=== PATIENT | male | born 1995 | race American Indian/Alaskan Native ===

== ENCOUNTER 2020-10-23 05:53 | Emergency (ER) | payer SELFPAY ==
[2020-10-23 06:03] VITALS: BP 122/74
--- NOTE | 2020-10-23 06:51 | XRay Report ---
CHEST 2 VIEWS INDICATION: right chest pain for the past 6 hours. COMPARISON: None FINDINGS: SUPPORT DEVICES: None. HEART: Within normal limits. LUNGS/PLEURA: Mild subtle patchy bibasilar airspace disease. No pneumothorax. ADDITIONAL FINDINGS: None. IMPRESSION: 1. Pulmonary findings as above. Signer Name: Janes Adams MD Signed: 10/23/2020 6:46 AM Workstation Name: [id number]
[2020-10-23 09:31] LABS: Basophils # (Auto) 0.1 K/mm3 (0.0-0.1); Basophils % (Auto) 1.3 % (0.0-1.8); Eosinophils # (Auto) 0.3 K/mm3 (0.0-0.4); Eosinophils % (Auto) 5.1 % (0.0-4.3); Hematocrit 39.4 % (35.5-45.6); Hemoglobin 13.9 gm/dl (11.8-15.2); Lymphocytes # (Auto) 2.8 K/mm3 (1.2-5.4); Lymphocytes % (Auto) 44.6 % (13.4-35.0); Mean Corpuscular HGB Conc 35 % (32-34); Mean Corpuscular Volume 86 fl (84-94); Monocytes # (Auto) 0.5 K/mm3 (0.0-0.8); Monocytes % (Auto) 8.1 % (0.0-7.3); Platelet Count 288 K/mm3 (140-440); Red Blood Count 4.57 M/mm3 (3.65-5.03)
[2020-10-23 09:50] LABS: Alanine Aminotransferase 23 units/L (7-56); Albumin 4.4 g/dL (3.9-5); BUN/Creatinine Ratio 12; Blood Urea Nitrogen 11 mg/dL (9-20); Calcium 9.5 mg/dL (8.4-10.2); Hemolysis Index 2
[2020-10-23 09:56] LABS: INR 0.92 (0.87-1.13)
[2020-10-23 09:57] LABS: Partial Thromboplastin Time 25.8 Sec. (24.2-36.6)
--- NOTE | 2020-10-23 09:59 | Emergency Department Report ---
ED Chest Pain HPI - General Chief Complaint: Chest Pain Stated Complaint: CHEST PAIN Time Seen by Provider: 10/23/20 08:34 Source: patient Mode of arrival: Ambulatory Limitations: No Limitations - History of Present Illness Initial Comments: This is a 25-year-old male nontoxic, well nourished in appearance, no acute signs of distress presents to the ED with c/o of right sided chest pain and dry nonproductive cough times several days. Patient denies any radiation of pain. Patient describes pain as aching intermittently and worse with coughing and p alpation. Patient denies any other upper respiratory symptoms. Patient denies any shortness of breath, hemoptysis, fever, chills, nausea, vomiting, headache, stiff neck, numbness, tingling, abdominal pain. Patient denies pleuritic chest pain. Patient denies any recent travels or long car rides. Patient denies any recent surgeries or any sick contacts. Patient denies any drug allergies or sig nificant past medical history. MD Complaint: chest pain (right side) -: days(s) Pain Location: right chest Pain Radiation: none Severity: mild Severity scale (0 -10): 3 Quality: aching, sharp Consistency: intermittent Improves With: rest Worsens With: palpation, other (Cough) re: denies: nausea, vomting, diaphoresis, dyspnea, sense of impending doom Other Symptoms: denies: cough, fever, syncope, rash, acid taste in mouth, leg swelling, palpitations, burping Treatments Prior to Arrival: none Aspirin use within the Past 7 Days: (0) No - Related Data Previous Rx's Medication Instructions Recorded Last Taken Type Acetaminophen [Acetaminophen 8 650 mg PO Q8H PRN #12 tablet.er 10/23/20 Unknown Rx Hour] Azithromycin [Zithromax Z-KATHRYN] 250 mg PO DAILY #6 tablet 10/23/20 Unknown Rx Allergies Allergy/AdvReac Type Severity Reaction Status Date / Time No Known Allergies Allergy Unverified 10/23/20 06:08 Heart Score - HEART Score History: Slightly suspicious EKG: Normal Age: < 45 Risk factors: No known risk factors Troponin: < normal limit HEART Score: 0 - EKG Read Time Time EKG Completed: 06:01 EKG Read Time: 06:05 (Dr. Rader) ED Review of Systems ROS: Stated complaint: CHEST PAIN Other details as noted in HPI Comment: All other systems reviewed and negative Constitutional: denies: chills, fever Eyes: denies: eye pain, eye discharge, vision change ENT: denies: ear pain, throat pain Respiratory: cough. denies: shortness of breath, wheezing Cardiovascular: chest pain. denies: palpitations Endocrine: no symptoms reported Gastrointestinal: denies: abdominal pain, nausea, diarrhea Genitourinary: denies: urgency, dysuria Musculoskeletal: denies: back pain, joint swelling, arthralgia Skin: denies: rash, lesions Neurological: denies: headache, weakness, paresthesias Psychiatric: denies: anxiety, depression Hematological/Lymphatic: denies: easy bleeding, easy bruising ED Past Medical Hx - Past Medical History Previous Medical History?: No - Surgical History Past Surgical History?: No - Social History Smoking Status: Current Every Day Smoker Substance Use Type: None - Medications Home Medications: Home Medications Medication Instructions Recorded Confirmed Last Taken Type Acetaminophen [Acetaminophen 8 650 mg PO Q8H PRN #12 tablet.er 10/23/20 Unknown Rx Hour] Azithromycin [Zithromax Z-KATHRYN] 250 mg PO DAILY #6 tablet 10/23/20 Unknown Rx ED Physical Exam - General Limitations: No Limitations General appearance: alert, in no apparent distress - Head Head exam: Present: atraumatic, normocephalic - Eye Eye exam: Present: normal appearance - Neck Neck exam: Present: normal inspection, full ROM. Absent: lymphadenopathy - Respiratory Respiratory exam: Present: normal lung sounds bilaterally, chest wall tenderness (Right side). Absent: respiratory distress, wheezes, rales, rhonchi, accessory muscle use, decreased breath sounds, prolonged expiratory - Cardiovascular Cardiovascular Exam: Present: regular rate, normal rhythm, normal heart sounds. Absent: bradycardia, tachycardia, irregular rhythm, systolic murmur, diastolic murmur, rubs, gallop - GI/Abdominal GI/Abdominal exam: Present: soft, normal bowel sounds. Absent: distended, tenderness, guarding, rebound, rigid, diminished bowel sounds - Extremities Exam Extremities exam: Present: normal inspection, full ROM - Back Exam Back exam: Present: normal inspection, full ROM. Absent: tenderness, CVA tenderness (R), CVA tenderness (L), muscle spasm, paraspinal tenderness, vertebral tenderness, rash noted - Neurological Exam Neurological exam: Present: alert, oriented X3, normal gait - Psychiatric Psychiatric exam: Present: normal affect, normal mood - Skin Skin exam: Present: warm, dry, intact, normal color. Absent: rash ED Course Vital Signs 10/23/20 10/23/20 05:59 06:02 Temperature 98.6 F Pulse Rate 62 Respiratory 18 Rate Blood Pressure 122/74 O2 Sat by Pulse 100 Oximetry - Reevaluation(s) Reevaluation #1: 10/23/20 10:14 Patient is speaking in full sentences with no signs of distress noted. LEO score - Leo Score Age > 65: (0) No Aspirin use within the Past 7 Days: (0) No 3 or more CAD Risk Factors: (0) No 2 or more Angina events in past 24 hrs: (0) No Known CAD with more than 50% Stenosis: (0) No Elevated Cardiac Markers: (0) No ST Deviation Greater than 0.5mm: (0) No LEO Score: 0 ED Medical Decision Making - Lab Data Result diagrams: 10/23/20 08:49 10/23/20 08:49 Lab Results 10/23/20 10/23/20 10/23/20 Range/Units 08:49 08:49 08:49 WBC 6.3 (4.5-11.0) K/mm3 RBC 4.57 (3.65-5.03) M/mm3 Hgb 13.9 (11.8-15.2) gm/dl Hct 39.4 (35.5-45.6) % MCV 86 (84-94) fl MCH 31 (28-32) pg MCHC 35 H (32-34) % RDW 14.0 (13.2-15.2) % Plt Count 288 (140-440) K/mm3 Lymph % (Auto) 44.6 H (13.4-35.0) % Dare % (Auto) 8.1 H (0.0-7.3) % Eos % (Auto) 5.1 H (0.0-4.3) % Baso % (Auto) 1.3 (0.0-1.8) % Lymph # (Auto) 2.8 (1.2-5.4) K/mm3 Dare # (Auto) 0.5 (0.0-0.8) K/mm3 Eos # (Auto) 0.3 (0.0-0.4) K/mm3 Baso # (Auto) 0.1 (0.0-0.1) K/mm3 Seg Neutrophils % 40.9 (40.0-70.0) % Seg Neutrophils # 2.6 (1.8-7.7) K/mm3 PT 12.9 (12.2-14.9) Sec. INR 0.92 (0.87-1.13) APTT 25.8 (24.2-36.6) Sec. Sodium 143 (137-145) mmol/L Potassium 4.5 (3.6-5.0) mmol/L Chloride 104.9 (98-107) mmol/L Carbon Dioxide 30 (22-30) mmol/L Anion Gap 13 mmol/L BUN 11 (9-20) mg/dL Creatinine 0.9 (0.8-1.3) mg/dL Estimated GFR > 60 ml/min BUN/Creatinine Ratio 12 % Glucose 83 (75-100) mg/dL Calcium 9.5 (8.4-10.2) mg/dL Total Bilirubin 0.40 (0.1-1.2) mg/dL AST 47 H (5-40) units/L ALT 23 (7-56) units/L Alkaline Phosphatase 42 (35-129) units/L Troponin T < 0.010 (0.00-0.029) ng/mL Total Protein 6.3 (6.3-8.2) g/dL Albumin 4.4 (3.9-5) g/dL Albumin/Globulin Ratio 2.3 % // Range/Units 10:54 WBC (4.5-11.0) K/mm3 RBC (3.65-5.03) M/mm3 Hgb (11.8-15.2) gm/dl Hct (35.5-45.6) % MCV (84-94) fl MCH (28-32) pg MCHC (32-34) % RDW (13.2-15.2) % Plt Count (140-440) K/mm3 Lymph % (Auto) (13.4-35.0) % Dare % (Auto) (0.0-7.3) % Eos % (Auto) (0.0-4.3) % Baso % (Auto) (0.0-1.8) % Lymph # (Auto) (1.2-5.4) K/mm3 Dare # (Auto) (0.0-0.8) K/mm3 Eos # (Auto) (0.0-0.4) K/mm3 Baso # (Auto) (0.0-0.1) K/mm3 Seg Neutrophils % (40.0-70.0) % Seg Neutrophils # (1.8-7.7) K/mm3 PT (12.2-14.9) Sec. INR (0.87-1.13) APTT (24.2-36.6) Sec. Sodium (137-145) mmol/L Potassium (3.6-5.0) mmol/L Chloride (98-107) mmol/L Carbon Dioxide (22-30) mmol/L Anion Gap mmol/L BUN (9-20) mg/dL Creatinine (0.8-1.3) mg/dL Estimated GFR ml/min BUN/Creatinine Ratio % Glucose (75-100) mg/dL Calcium (8.4-10.2) mg/dL Total Bilirubin (0.1-1.2) mg/dL AST (5-40) units/L ALT (7-56) units/L Alkaline Phosphatase (35-129) units/L Troponin T < 0.010 (0.00-0.029) ng/mL Total Protein (6.3-8.2) g/dL Albumin (3.9-5) g/dL Albumin/Globulin Ratio % - EKG Data 10/23/20 11:50 Normal sinus rhythm at [address] or T wave abnormalities. No STEMI Reviewed and signed by . - Radiology Data [facility] [address] [place] [address] XRay Report Signed Patient: DEVON BATRES MR#: [id number] : 1995 Acct:[id number] Age/Sex: 25 / M ADM Date: 10/23/20 Loc: ED Attending Dr: Ordering Physician: KURT SCHWARTZ MD Date of Service: 10/23/20 Procedure(s): XR chest routine 2V Accession Number(s): [id number] cc: ED MD EFREN Fluoro Time In Minutes: CHEST 2 VIEWS INDICATION: right chest pain for the past 6 hours. COMPARISON: None FINDINGS: SUPPORT DEVICES: None. HEART: Within normal limits. LUNGS/PLEURA: Mild subtle patchy bibasilar airspace disease. No pneumothorax. ADDITIONAL FINDI NGS: None. IMPRESSION: 1. Pulmonary findings as above. Signer Name: Janes Adams MD Signed: 10/23/2020 6:46 AM Workstation Name: [id number] Transcribed By: KATHY Dictated By: Janes Adams MD Electronically Authenticated By: Janes Adams MD Signed Date/Time: 10/23/20645 DD/ 4 TD/TT: - Medical Decision Making This is a 25-year-old male that presents with PNA with suspceted COVID. Patient is stable and was examined by me. LEO and HEART score 0 pints. PERC score for DVT/SVT/PE 0 points. Negative d-dimmer. EKG normal sinus rhythm with no significant changes in ST. Chest xray dictated by the radiologist. PAtient is notified of the Xray report with no questions noted. Labs within normal limits. Negative troponin x2. Patient was instructed to Follow-up with a primary care/management intern doctor in 2 days or if symptoms worsen and continue return to emergency room as soon as possible. At time of discharge, the patient does not seem toxic or ill in appearance. No acute signs of distress noted. Patient agrees to discharge treatment plan of care. No further questions noted by the patient. Critical care attestation.: If time is entered above; I have spent that time in minutes in the direct care of this critically ill patient, excluding procedure time. ED Disposition Clinical Impression: Suspected COVID-19 virus infection PNA (pneumonia) Qualifiers: Pneumonia type: due to unspecified organism Laterality: bilateral Lung location: unspecified part of lung Qualified Code(s): J18.9 - Pneumonia, unspecified organism Chest pain, unspecified Qualifiers: Chest pain type: unspecified Qualified Code(s): R07.9 - Chest pain, unspecified Disposition: DC- TO HOME OR SELFCARE Is pt being admited?: No Does the pt Need Aspirin: No Condition: Stable Instructions: Bacterial Pneumonia (ED), Nonspecific Chest Pain, Adult, C ommunity-Acquired Pneumonia, Adult, COVID-19 Frequently Asked Questions Additional Instructions: Follow-up with a primary care/management intern doctor in 2 days or if symptoms wo rsen and continue return to emergency room as soon as possible. Prescriptions: Acetaminophen [Acetaminophen 8 Hour] 650 mg PO Q8H PRN #12 tablet.er PRN Reason: pain/fever Azithromycin [Zithromax Z-KATHRYN] 250 mg PO DAILY #6 tablet Referrals: PRIMARY CARE, [Primary Care Provider] - 3-5 Days GEOFF CASANOVA MD [Staff Physician] - 3-5 Days Time of Disposition: 11:52
--- NOTE | 2020-10-23 13:40 | Electrocardiograph Report ---
[facility] Test Date: 2020-10-23 Test Time: 06:01:58 Pat Name: DEVON BATRES Department: Room: Gender: M [employer] Att[employer]: INOCENTE : 1995 Requested By: SRIRAM DIAZ Order Number: [id number] Reading MD: Julian Archuleta Measurements Intervals [place] Rate: 63 P: 27 CA: 133 QRS: 30 QRSD: 101 T: 41 QT: 411 QTc: 413 Interpretive Statements SINUS ARRHYTHMIA No previous ECG available for comparison Electronically Signed On 10-23-2020 13:39:49 EDT by Julian Archuleta
== END 2020-10-23 11:53 | disposition home or self-care (01) ==
LOC: ED 05:53
DX: J18.9 Pneumonia, unspecified organism (principal); F17.200 Nicotine dependence, unspecified, uncomplicated
CPT/HCPCS: 36415; 71046; 80053; 84484; 85025; 85610; 85730; 93005; 99283